=== PATIENT | female | born 1940 | race American Indian/Alaskan Native ===

== ENCOUNTER 2016-11-06 09:50 | Outpatient (CLI) | payer MEDICARE ==
--- NOTE | 2016-11-06 11:35 | Mammography Report ---
BILATERAL DIGITAL SCREENING MAMMOGRAM WITH CAD: 11/06/16 09:50:00 CLINICAL: Routine screening.Breast cancer survivor status post right partial mastectomy. COMPARISON:09/30/15 FINDINGS: The breasts are heterogeneously dense, which may obscures small masses. Stable right outer postsurgical scar with a large benign calcification. Stable mild skin thickening of the right breast. No mass, suspicious architectural distortion or suspicious calcifications. IMPRESSION: No mammographic evidence of malignancy. BI-RADS CATEGORY: 2 -- Benign RECOMMENDATION: Routine mammographic screening in one year. COMMENT: Patient follow-up letters are generated via our [employer] application.
== END 2016-11-06 09:51 | disposition home or self-care (01) ==
LOC: SPVWC 09:50
PROVIDERS: ATTEND Internal Medicine Hematology & Oncology
DX: R92.8 Other abnormal and inconclusive findings on diagnostic imaging of breast (principal); Z85.3 Personal history of malignant neoplasm of breast; Z90.11 Acquired absence of right breast and nipple
CPT/HCPCS: 77066; G0204

== ENCOUNTER 2017-11-10 10:42 | Outpatient (CLI) | payer MEDICARE ==
--- NOTE | 2017-11-11 09:22 | Mammography Report ---
BILATERAL DIGITAL SCREENING MAMMOGRAM WITH CAD: 11/10/17 10:42:00 CLINICAL: Routine screening.Breast cancer survivor status post right partial mastectomy . COMPARISON:11/06/16 FINDINGS: Heterogeneously dense breasts. Positioning of the left MLO view is suboptimal because of limited mobility of the left arm. Stable right outer postsurgical scar with benign calcifications. No mass, suspicious architectural distortion or suspicious calcifications. IMPRESSION: No mammographic evidence of malignancy. BI-RADS CATEGORY: 2 -- Benign RECOMMENDATION: Routine mammographic screening in one year. COMMENT: Patient follow-up letters are generated via our [employer] application.
== END 2017-11-10 10:43 | disposition home or self-care (01) ==
LOC: SPVWC 10:42
PROVIDERS: ATTEND Internal Medicine Hematology & Oncology
DX: Z12.31 Encounter for screening mammogram for malignant neoplasm of breast (principal)
CPT/HCPCS: 77067

== ENCOUNTER 2018-12-29 12:46 | Outpatient (CLI) | payer MEDICARE ==
--- NOTE | 2018-12-30 08:27 | Mammography Report ---
BILATERAL DIGITAL SCREENING MAMMOGRAM WITH CAD INDICATION: Routine screening mammography. Breast cancer survivor status post right partial mastectom y TECHNIQUE: Digital bilateral 2D mammography was obtained in the craniocaudal and mediolateral obliq ue projections. This examination was interpreted with the benefit of Computer-Aided Detection analysi s. COMPARISON: 11/10/2017 FINDINGS: Breast Density: The breasts are heterogeneously dense, which may obscure small masses. No mass, architectural distortion or suspicious calcifications. Stable right outer postsurgical scar with benign fat necrosis and calcifications at the scar. Moderate skin thickening of the right breast is increased compared to the last exam. There is also new moderate skin thickening of the left breas t. IMPRESSION:No mammographic evidence of malignancy. Benign skin thickening. BI-RADS Category 2: Benign. No mammographic evidence of malignancy. Recommend routine screening ma mmography in one year. A "normal" or negative report should not discourage follow up or biopsy of a clinically significant f inding. A written summary of these findings will be mailed to the patient. The patient will be entered into a mammography reporting system which will generate a reminder letter for the patient's next appointmen t at the appropriate interval. The [employer] recommends yearly mammograms starting at age 40 and continuing as l eileen as a woman is in good health. Breast MRI is recommended for women with an approximate 20-25% or greater lifetime risk of breast cancer, including women with a strong family history of breast or ova sarai cancer or who have been treated for Hodgkin's disease. Signer Name: Jett Farfan MD Signed: 12/30/2018 8:22 AM Workstation Name: [id number]
== END 2018-12-29 12:47 | disposition home or self-care (01) ==
LOC: SPVWC 12:46
PROVIDERS: ATTEND Internal Medicine Hematology & Oncology
DX: Z12.31 Encounter for screening mammogram for malignant neoplasm of breast (principal)
CPT/HCPCS: 77067

== ENCOUNTER 2020-01-04 12:40 | Outpatient (CLI) | payer MEDICARE ==
--- NOTE | 2020-01-04 15:03 | Mammography Report ---
DIGITAL SCREENING MAMMOGRAM WITH CAD, 01/04/2020 INDICATION: Routine screening mammography. SCREENING MAMMO TECHNIQUE: Digital bilateral 2D mammography was obtained in the craniocaudal and mediolateral obliq ue projections. This examination was interpreted with the benefit of Computer-Aided Detection analysi s. COMPARISON: 01/28/2014 through 12/29/2018. FINDINGS: Breast Density: There are scattered areas of fibroglandular density. Postlumpectomy changes in the right upper outer quadrant posteriorly are stable. There are benign kathya ast arterial calcifications bilaterally. No new abnormality is seen. IMPRESSION: No mammographic evidence of malignancy or significant change. Follow up recommendation: Routine yearly BI-RADS Category 2: Benign. A "normal" or negative report should not discourage follow up or biopsy of a clinically significant f inding. A written summary of these findings will be mailed to the patient. The patient will be entered into a mammography reporting system which will generate a reminder letter for the patient's next appointmen t at the appropriate interval. The [employer] recommends yearly mammograms starting at age 40 and continuing as l eileen as a woman is in good health. Breast MRI is recommended for women with an approximate 20-25% or greater lifetime risk of breast cancer, including women with a strong family history of breast or ova sarai cancer or who have been treated for Hodgkin's disease. Signer Name: Amador Huggins MD Signed: 01/04/2020 2:59 PM Workstation Name: [id number]
== END 2020-01-04 12:41 | disposition home or self-care (01) ==
LOC: SPVWC 12:40
PROVIDERS: ATTEND Internal Medicine Hematology & Oncology
DX: Z12.31 Encounter for screening mammogram for malignant neoplasm of breast (principal); N64.89 Other specified disorders of breast
CPT/HCPCS: 77067